=== PATIENT | male | born 1955 | race Caucasian/White ===

== ENCOUNTER → 2019-10-24 | Outpatient (CLI) | payer MEDICARE, BC ==
[2015-12-09 22:30] VITALS: BP 145/58
[~2019-10-24] MED LIST: LEVO500T59 PO; ONDA4TAB10 SL; OXYC1TAB15 PO; TAMS0.4C97 PO
== END | disposition home or self-care (01) ==
LOC: LAB 08:30
PROVIDERS: ATTEND Registered Nurse
DX: Z11.59 Encounter for screening for other viral diseases (principal)
CPT/HCPCS: U0003-CS

== ENCOUNTER → 2019-10-28 | Day surgery (SDC) | payer MEDICARE, BC ==
[~2019-10-28] MED LIST changes: +IPRATRPIUM/ALBUTEROL 0.5/2.5MG 3 ML NEBU. NEB PRN; +IV RINGERS SOLUTION,LACTATED 1,000 ML IV SCH; +ONDANSETRON PF 4 MG/2 ML VIAL. IV PRN; +PROPOFOL 10,000 MCG/ML (20ML) VIAL IV ONE
[2019-10-28 09:15] VITALS: BP 97/71
--- NOTE | 2019-10-29 15:09 | PATHOLOGY ---
[facility] Accession Number: [id number] . 01 Material submitted: . PART A: colon - ASCENDING POLYP. Modifiers: ascending PART B: colon - ASCENDING POLYP, HOT SNARE. Modifiers: ascending PART C: colon - SIGMOID POLYP. Modifiers: sigmoid . 01 Clinical history: . None provided . 02 Diagnosis: A. Colon biopsies, ascending polyp: - Tubular adenoma. . B. Colon biopsy, ascending polyp hot snare: - Tubular adenoma. . C. Colon biopsy, sigmoid polyp: - Tubular adenoma. (JPM:alexa; 10/29/2019) S 10/29/2019 0840 Local . 02 Comment: There is no high grade dysplasia or evidence of malignancy. (JPM:alexa; 10/29/2019) . 02 Electronically signed: . Carlo Arreola MD, Pathologist NPI- [id number] . 01 Gross description: . A. The specimen is received in formalin, labeled "Ignacio Corriston III, ascending colon". Received are two segments of pale renee soft tissue ranging in size from 0.4 to 0.5 cm in maximum dimensions. The specimen is submitted entirely in cassette A1. . B. The specimen is received in formalin, labeled "Ignacio Corriston III, ascending snare". Received is a segment of pale renee soft tissue measuring 1.0 cm in maximum dimensions. The surgical margin is inked and the segment is bisected. The specimen is submitted entirely in cassette B1. . C. The specimen is received in formalin, labeled "Ignacio Corriston III, sigmoid". Received is a segment of pale renee soft tissue measuring 1.2 cm in maximum dimensions. The specimen is submitted entirely in cassette C1. (CAA; 10/28/2019) QAC/QAC 10/28/2019 1740 Local . 02 Pathologist provided ICD-10: D12.2, D12.5 . 02 CPT . 240681, 509770, [id number] Specimen Comment: A courtesy copy of this report has been sent to [phone], [phone] Specimen Comment: [id number] Specimen Comment: Report sent to / DR HARGROVE Performed at: 01 [facility] [address], [place] [id number] MD Glenn Youngblood MD Phone: [phone] Performed at: 02 [facility] [address], [place] [id number] MD Carlo Arreola MD Phone: [phone]
== END | disposition home or self-care (01) ==
LOC: SURG 07:35
PROVIDERS: ATTEND Emergency Medicine
DX: Z12.11 Encounter for screening for malignant neoplasm of colon (principal); D12.2 Benign neoplasm of ascending colon; D12.5 Benign neoplasm of sigmoid colon; I10 Essential (primary) hypertension; Z87.891 Personal history of nicotine dependence; M19.90 Unspecified osteoarthritis, unspecified site
CPT/HCPCS: 45385; 88305; J2704; J7120

== ENCOUNTER → 2021-01-17 | Outpatient (CLI) | payer MEDICARE, BC ==
[2019-10-28 09:15] VITALS: BP 97/71
[~2021-01-17] MED LIST changes: +IOHEXOL 350 MG/ML 100 ML VIAL. IV ONE; -IPRATRPIUM/ALBUTEROL 0.5/2.5MG 3 ML NEBU. NEB PRN; -IV RINGERS SOLUTION,LACTATED 1,000 ML IV SCH; -ONDANSETRON PF 4 MG/2 ML VIAL. IV PRN; -PROPOFOL 10,000 MCG/ML (20ML) VIAL IV ONE
[2021-01-17 08:31] LABS: CREATININE 1.1 mg/dL (0.7-1.3); GFR 66.8
--- NOTE | 2021-01-17 10:56 | RAD ---
EXAMINATION: CT ABDOMEN+PELVIS WO+W (CT UROGRAM) CLINICAL HISTORY: Gross hematuria with history of nephrolithiasis and prior lithotripsy TECHNIQUE: CT urogram protocol including unenhanced, renal parenchymal phase, and excretory phase wali al imaging was obtained following intravenous contrast. CT Dose Reduction Employed: One or more of the following individualized dose reduction techniques wer e utilized for this examination: 1. Automated exposure control 2. Adjustment of the mA and/or kV ac cording to patient size 3. Use of iterative reconstruction technique. COMPARISON: 12/09/2015 FINDINGS: KIDNEYS AND URINARY TRACT: Right: No renal calculi. Two 1 cm cysts in the mid and lower poles which were not definitively visual ized on the prior study.. Additional tiny hypoenhancing cortical foci, too small adequately character ize. Opacified calyces, renal pelvis, and ureter unremarkable with no evidence of dilation, filling d efect, or stricture. Left: No renal calculi. 5.7 cm partially exophytic cyst in the posterior mid-upper pole, previously 5 .0 cm. 2 cm cyst in the upper pole which is not visualized on the prior study. Additional tiny hypoen hancing cortical foci, too small adequately characterize. Opacified calyces, renal pelvis, and ureter unremarkable with no evidence of dilation, filling defect, or stricture. Bladder: Minimally filled urinary bladder suboptimally evaluated. Mild prominence of the bladder wall s measuring up to 4 mm in thickness, possibly related to underdistention but infectious/inflammatory etiology cannot be excluded. No evidence of filling defect or calculus. ABDOMEN AND PELVIS: Liver: No mass. Biliary: No bile duct dilation. Gallbladder unremarkable. Spleen: No mass. No splenomegaly. Pancreas: No mass or duct dilation. Single small calcification in the pancreatic tail, nonspecific. Adrenals: No mass. GI tract: No bowel dilation or definite wall thickening. Normal appendix. Lymph nodes: No abdominal or pelvic lymphadenopathy. Mesentery/Peritoneum: Focal subtle groundglass attenuation in the central mesentery with multiple ass ociated small nodules/prominent lymph nodes, nonspecific but can be seen with mesenteric panniculitis and appears similar on the prior exam. Vasculature: Arterial atherosclerotic calcification without aneurysm. Pelvis: Coarse central prostatic calcifications. Bones/Soft Tissues: Multilevel thoracolumbar degenerative changes. Lung Bases: Minimal bibasilar subsegmental atelectasis. IMPRESSION: No urolithiasis or evidence of obstructive uropathy. Minimally filled urinary bladder with mildly prominent belle, suboptimally evaluated. This may be rel ated to underdistention, but cannot exclude underlying infectious/inflammatory etiology. Correlate cl inically. Bilateral renal cysts. Additional nonacute findings as described. Electronically signed by: Brian Alatorre DO (01/17/2021 10:54 AM) [id number]
== END ==
LOC: CT 07:38
PROVIDERS: ATTEND Specialist
DX: N28.1 Cyst of kidney, acquired (principal); I70.0 Atherosclerosis of aorta; R31.0 Gross hematuria; N23 Unspecified renal colic; N40.0 Benign prostatic hyperplasia without lower urinary tract symptoms
CPT/HCPCS: 36415; 74178; 82565; 84520; Q9967